=== PATIENT | male | born 2000 | race Caucasian/White ===

== ENCOUNTER 2023-08-19 11:56 | Emergency (ER) | payer SELFPAY ==
[~2023-08-19] VITALS: Ht 157.5 cm; Wt 59.1 kg
[2023-08-19 12:02] VITALS: BP 127/79; PULSE 66; RESP 18; TEMP 98.3
== END 2023-08-19 13:02 | disposition home or self-care (01) ==
LOC: EMS 11:58
DX: A15.9 Respiratory tuberculosis unspecified (principal); Z00.00 Encounter for general adult medical examination without abnormal findings
CPT/HCPCS: 71046; 99283